=== PATIENT | female | born 1970 | race Caucasian/White ===

== ENCOUNTER → 2018-07-16 14:44 | Outpatient (CLI) | payer OTHER, MEDICAID, SELFPAY ==
[2018-07-16 14:18] VITALS: BMI 30.7
--- NOTE | 2018-07-16 14:47 | BI_ITS ---
MAMMOGRAPHY - BILATERAL SCREENING REASON FOR EXAM: Female, 47 years old. Routine annual screening examination. PERTINENT HISTORY: Non-contributory. TECHNIQUE: Digital bilateral breast robe (3D mammographic acquisition) in the CC and MLO projections. 2-D mediolateral oblique (MLO) and craniocaudad (CC) views of both breasts were obtained. CAD: Full Field Digital Mammography with Computer Added Detection was performed. COMPARISON: Comparison is made with prior study dated June 08, 2017 and December 28, 2012. FINDINGS: Breast Composition: The breasts are heterogeneously dense, which may obscure small masses. There are no dominant masses or suspicious calcifications. The previously seen nodular density in the mid inner aspect of the left breast is not seen at this time. No other significant abnormalities are identified. BI/SCREENING MAMM (CAD), BILAT IMPRESSION: Stable bilateral screening mammogram. Yearly follow-up mammogram recommended. (A) ASSESSMENT CATEGORY: BIRADS Category 1: Negative. A letter regarding these results will be sent to the patient by the facility within 30 days. Approximately 10% of breast cancers are not detected by mammography. A normal mammogram should not delay biopsy of a clinically suspicious abnormality. [id number] Electronically Signed: Eulogio Dennis MD at 15:43 EST Tel [phone], Service support ,
[2018-07-20 11:23] LABS: HPV APTIMA, High Risk Negative (Negative)
--- OUTSIDE RECORDS SUMMARY | 2018-09-18 02:56 | XMS RPT_ITS ---
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: No Is patient in pain?: No Allergies No Known Allergies Allergy (Verified 07/16/18 14:18) Medications venlafaxine ER 150 mg capsule,extended release 24 hr 150 mg PO QHS #30 cap 07/23/17 [Rx Confirmed 07/16/18] Is last menstrual period known: No Post menopausal: No Patient : No : No PFSH Medical History Depression with anxiety (Acute) Surgical History H/O lithotripsy (Acute) H/O tubal ligation (Acute) History of tonsillectomy (Acute) uterine ablation (Acute) Family History Unknown Factor 5 Leiden mutation, heterozygous Social History Smoking Status: Never smoker alcohol intake: never substance use type: does not use caffeine: Yes what type of physical activity do you participate in: walking seatbelt use: always do you feel safe at home: Yes additional social history: - works at [employer] History 3 Elective abortions Hx Para 4 Spontaneous abortions Past Pregnancies Del. DateName GA/Weeks Outcome Route Bt WeighInfant GeLabor LgtAnesthesiDel LocatProvider FOB t n h a n HPI ANNUAL: Details: JAIMEE VILLEGAS is a 47 year old who presents for annual exam. still having menses Last PAP: due today History of abnormal PAP: no Last mammogram: done History of abnormal mammogram: Colon cancer screening: Other preventative health care screenings: needs new pcp Female Reproductive History Questions: Metorrhagia: No, Sexually active: Yes, Dyspareunia: No, PCB: No Menopausal Symptoms: No hot flashes, No night sweats, No weight change, Yes mood changes, No difficulty concentrating, No sleep problems, No change in libido ROS Const Constitutional: Denies night sweats Cardio Card: Denies chest pain Resp Resp: Denies dyspnea or cough GI GI: Reports as per HPI; denies bloating, abdominal pain, constipation, vomiting or nausea : Denies hot flashes or nipple discharge Skin Skin/Breast: Denies breast pain, breast skin changes, nipple discharge, breast lump or changing lesions Psych Psych: Denies difficulty concentrating or change in sex drive Exam Const General: cooperative, healthy appearing, comfortable, no acute distress, well developed, well groomed [facility] Head: normal to inspection, normocephalic Ears: hearing grossly normal bilaterally, external ears normal Nose: external nose normal Face and sinus: normal facial exam Neck Neck: normal visual inspection, full ROM, no lymphadenopathy Thyroid: thyroid normal Chest Chest palpation AND inspection: normal inspection of the chest Breast inspection: normal inspection of the breasts, normal inspection of the axillae Breast palpation: normal palpation of the breasts, normal palpation of the axillae, no axillary lymphadenopathy Resp Effort AND Inspection: normal respiratory effort GI Inspection: normal to inspection, non-distended Palpation: no guarding, soft, no hepatosplenomegaly General: bladder normal to palpation External Female Exam: normal external appearance, normal appearance of the urethra, no lesions Urethra: normal appearance of the urethra, normal palpation Speculum Exam - Vagina: normal appearance of the vagina, normal vaginal discharge Speculum Exam - Cervix: normal appearance of the cervix, no cervical discharge, no lesions, nontender Bimanual Exam- Vagina AND Uterus: No cervical tenderness, normal bimanual exam, uterine size normal, bladder normal to palpation, uterine mobility normal, uterine consistency normal, uterus non-tender, no cervical motion tenderness Bimanual Exam- Adnexa, other: normal adnexae, no adnexal masses, adnexae non-tender Skin General: no rashes or lesions noted Neuro General: alert, moves all extremities, no focal motor deficits Extrem General: no pedal edema, normal to inspection Psych Appearance: grossly normal Mental Status: mental status grossly normal Affect: normal affect Speech and Movement: speech and movement normal Attitude: cooperative Assessment AND Plan Problems 1. Encounter for gynecological examination without abnormal finding Z01.419 Plan Cervical cancer screening: pap hpv Breast cancer screening: mamm other health maintenance examination reviewed and orders placed if needed. Encouraged maintenance of a healthy weight and active lifestyle and handout given. Annual exam handout including recommendations for good health guidelines, Calcium/vitamin D recommendations, and basic screening information given. Problem list up to date, see problem list details for any additional plan information. Follow up in one year for annual health maintenance exam or sooner if needed. Orders Orders: Coding Level of Care Code Off vis,est,prev 40-64yrs Diagnoses Encounter for gynecological examination without abnormal finding Z01.419 Gynecological examination findings: abnormal findings ABSENT 07/16/18 3374 <Electronically signed by Renate Carty MD> Date Renate Carty MD Cosigner Signature: Date (if applicable) CC: PAP IG HPV APTIMA Collected: 07/16/2018 Status: F Source: [place] 16/18,45 3:00 PM [facility] REPOSITORY Order Comment: CYTOLOGY INFORMATION: - CLINICAL INFORMATION: - DATE LMP/MENOPAUSE: LMP - COLLECTION VIAL: Thin Prep Vial - INSTRUCTIONAL TECHNOLOGIST SOURCE: CERVICAL - COLLECTION TECHNIQUE: BRUSH/SPATULA Specimen Comment: [id number] Specimen Comment: Source.............Cervix Specimen Comment: No. of containers..01 ThinPrep Vial TYPE CODE TESTS RESULT OUT OF RANGE REFERENCE UNITS LAB L7400.0800 . Normal DIAGN Comment Result Comment: NEGATIVE FOR INTRAEPITHELIAL LESION AND MALIGNANCY. REACTIVE CELLULAR CHANGES AND/OR REPAIR ARE PRESENT. LAB L7400.0900 . Normal ADEQ Comment Result Comment: Satisfactory for evaluation. Endocervical and/or squamous metaplastic cells (endocervical component) are present. LAB L7400.1400 . Normal PERFORM Comment Result Comment: Tara Jeff, Family Day Care Provider (ASCP) LAB L7400.1700 . Normal SIGN Comment Result Comment: Zena Parada MD, Pathologist LAB L7400.2575 . Normal TEST METHOD Comment Result Comment: This liquid based ThinPrep(R) pap test was screened with the use of an image guided system. LAB L7400.2600 . Normal . COMM LAB L7400.2700 . Normal PAPSMR Comment Result Comment: The Pap smear is a screening test designed to aid in the detection of premalignant and malignant conditions of the uterine cervix. It is not a diagnostic procedure and should not be used as the sole means of detecting cervical cancer. Both false-positive and false-negative reports do occur. LAB L7400.2760 Negative Normal HPV APTIMA, Negative HR Result Comment: This test detects fourteen high-risk HPV types (16/18/31/33/35/39/45/ 51/52/56/58/59/66/68) without differentiation. Performed at: WB - [facility] [address] [id number] Marine Service Manager: Windy Sotelo MD, Phone: [phone] Performed at: =G - [facility] [address] [id number] Marine Service Manager: Windy Sotelo MD, Phone: [phone] Performed By: #### L7400.0280 #### [facility] (refer to report for specific site) refer to report for address and phone number SCREENING MAMM (CAD), Observed: 07/16/2018 Status: F Source: [place] BILAT 2:47 PM [facility] REPOSITORY [facility] Imaging Services [address] [place] [address] SCREENING MAMM (CAD), BIL MR#: [id number] Acct: [id number] Name: JAIMEE VILLEGAS Rep #: [id number] : 1970 F 47 From: Eulogio Dennis MD PCP: Care Physician, No Primary Status: REG CLI Study: SCREENING MAMM (CAD), BILAT Date of Exam: 07/16/18 Exam# [id number] Ordering Dr: Renate Carty MD MAMMOGRAPHY - BILATERAL SCREENING REASON FOR EXAM: Female, 47 years old. Routine annual screening examination. PERTINENT HISTORY: Non-contributory. TECHNIQUE: Digital bilateral breast robe (3D mammographic acquisition) in the CC and MLO projections. 2-D mediolateral oblique (MLO) and craniocaudad (CC) views of both breasts were obtained. CAD: Full Field Digital Mammography with Computer Added Detection was performed. COMPARISON: Comparison is made with prior study dated June 08, 2017 and December 28, 2012. FINDINGS: Breast Composition: The breasts are heterogeneously dense, which may obscure small masses. There are no dominant masses or suspicious calcifications. The previously seen nodular density in the mid inner aspect of the left breast is not seen at this time. No other significant abnormalities are identified. BI/SCREENING MAMM (CAD), BILAT IMPRESSION: Stable bilateral screening mammogram. Yearly follow-up mammogram recommended. (A) ASSESSMENT CATEGORY: BIRADS Category 1: Negative. A letter regarding these results will be sent to the patient by the facility within 30 days. Approximately 10% of breast cancers are not detected by mammography. A normal mammogram should not delay biopsy of a clinically suspicious abnormality. [id number] Electronically Signed: Eulogio Dennis MD at 15:43 EST Tel [phone], Service support , CC: No Primary Care Physician; Renate Carty MD Cutting Machine Tender Helper: Signed ALLERGIES ALLERGIES DATE TYPE / CODE NAME / CODE REACTION SEVERITY SOURCE 07/16/2018 Drug No Known Unknown Ele Allergy/416 Allergies/[id number] [facility] 040242(SNOM 388(RXNORM) [facility] CT) Repository Drug/791463 No Known Mandaeism 003(SNOMED Medication [facility]) Allergies System Repository ENCOUNTERS ENCOUNTERS ADMIT/DISCHARGE ACCOUNT ADMITTING ENCOUNTER LOCATION SOURCE NUMBER CLASS 07/16/2018 [id number] [place] [facility] ing:OPBI Repository 07/16/2018/07/16/19 [id number] Ambulatory BMSBuilding:B Ele [facility] Repository 10/12/2017/10/13/19 [id number] [place], Ambulatory Mandaeism Mandaeism [address] [facility] ing:CD:[id number] [facility] 7151Room: Repository CD:[id number] PAYERS PAYERS ENCOUNTER GUARANTOR PAYER SUBSCRIBER SOURCE 07/16/2018 JAIMEE A Primary JAIMEE A Ele [id number] Insurance:MEDICAL TATEDOB: [address] [facility] [id number]: Repository [id number]: [phone] [id number] [phone] (HP) Date:[id number] [address] [place] [id number]: 07/16/2018 Secondary JAIMEE A Ele Insurance:CARESOURCEP TATEDOB: [facility] Number: [id number] Hospital [id number] Repository Date:2018-04-16 [address]N: [place] [address]VR: 07/16/2018 Tertiary NOT GIVENUNK [place] Insurance:SELF PAY [facility] Number: Effective Repository Date:2018-04-16 07/16/2018 JAIMEE A Primary JAIMEE A [place] [id number] Insurance:MEDICAL TATEDOB: [facility] 1040PO [facility] 94BIG [facility] [id number] Number: Repository [address]Uvm: 330 [id number] [phone] () Date:[id number] [facility] [address] [place] [id number]: 07/16/2018 Secondary JAIMEE A [place] Insurance:CARESOURCEP TATEDOB: [facility] Number: [id number] Hospital [id number] Repository Date:2018-04-16 [address]ATTN: [place] [address]SI: 07/16/2018 Tertiary NOT GIVENUNK Ele Insurance:SELF PAY [facility] Number: Effective Repository Date:2018-07-16 10/12/2017 JAIMEE A Primary JAIMEE A Mandaeism TATEDOB: Insurance:Medical TATEDOB: [id number] Number: [id number] System 94[facility] Effective [address] Repository [place] Date:2017-10-12 [place] [address]Vyn: [id number] [id number]: Name:Medical MutualPO () [address], [place] ()Tel: [phone]: [phone] 10/12/2017 Secondary JAIMEE A Mandaeism Insurance:[place] TATEDOB: [facility] MCAIDPolicy Number: [id number] System Effective [address] Repository Date:2017-10-12 - [place], [place] [id number] [id number]: Name:CD:[id number] [address], [place] ()Tel: [phone]: [phone]
== END ==
PROVIDERS: Referring Provider Obstetrics & Gynecology; Visit Provider Obstetrics & Gynecology
DX: Z12.31 Encounter for screening mammogram for malignant neoplasm of breast (principal); Z12.4 Encounter for screening for malignant neoplasm of cervix
CPT/HCPCS: 77063; 77067; 87624; 88175; G0145

== ENCOUNTER → 2019-07-22 13:40 | Outpatient (CLI) | payer OTHER, SELFPAY ==
[2018-07-16 14:18] VITALS: BMI 30.7
--- NOTE | 2019-07-22 13:40 | BI_ITS ---
MAMMOGRAPHY - BILATERAL SCREENING REASON FOR EXAM: Female, 48 years old. Routine annual screening examination. PERTINENT HISTORY: Aunt with breast cancer. TECHNIQUE: Digital bilateral breast fatmata (3D mammographic acquisition) in the CC and MLO projections. 2-D mediolateral oblique (MLO) and craniocaudad (CC) views of both breasts were obtained. CAD: Full Field Digital Mammography with Computer Added Detection was performed. COMPARISON: Comparison is made with prior mammogram dated July 16, 2018 and June 08, 2017. FINDINGS: Breast Composition: The breasts are heterogeneously dense, which may obscure small masses. There are no dominant masses or suspicious calcifications. Stable benign-appearing bilateral axillary lymph nodes. No other significant abnormalities are identified. There has been no significant change since the prior study. BI/SCREEN MAMM (CAD) W/FATMATA BILAT IMPRESSION: Stable bilateral screening mammogram. Yearly follow-up mammogram recommended. (A) ASSESSMENT CATEGORY: BIRADS Category 2: Benign. A letter regarding these results will be sent to the patient by the facility within 30 days. Approximately 10% of breast cancers are not detected by mammography. A normal mammogram should not delay biopsy of a clinically suspicious abnormality. [id number] Electronically Signed: Eulogio Dennis, at 15:02 EST , Service support ,
== END ==
PROVIDERS: Referring Provider Obstetrics & Gynecology; Visit Provider Obstetrics & Gynecology
DX: Z12.31 Encounter for screening mammogram for malignant neoplasm of breast (principal)
CPT/HCPCS: 77063; 77067

== ENCOUNTER → 2020-03-09 08:47 | Outpatient (CLI) | payer OTHER, SELFPAY ==
[2019-12-02 15:10] VITALS: BMI 30.7
[2020-03-09 10:57] LABS: Vitamin D,25 Hydroxy 29.2 ng/mL
[2020-03-09 11:11] LABS: ALB/GLOB Ratio 0.8 RATIO (0.9-2.4); AST(SGOT) 29 U/L (15-37); Alanine Aminotransfer ALT/SGPT 36 U/L (13-56); Albumin, Serum 3.5 g/dL (3.2-5.0); Alkaline Phosphatase 80 U/L (45-117); Anion Gap 8 (5-15); BUN 12 mg/dL (7-18); BUN/Creat Ratio 17.1 RATIO (10-20); Chloride 101 mmol/L (98-107); Cholesterol 225 mg/dL (200); EST Glomerular Filtration Rate 94 mL/min (>60); Est Glom Filt Rate - Afr Amer 114 mL/min (>60); Globulin 4.2 g/dL (2.2-4.2); Glucose 83 mg/dL (74-106); High Density Lipoprotein 49 mg/dL; Potassium 4.1 mmol/L (3.5-5.1); Protein, Total 7.7 g/dL (6.4-8.2); Sodium Level 137 mmol/L (136-145); Thyroid Stim Hormone (TSH) 1.25 uIU/mL (0.358-3.74); Triglycerides 249 mg/dL; Very Low Density Lipoprotein 50 mg/dL (5-40)
== END ==
PROVIDERS: Referring Provider Obstetrics & Gynecology; Visit Provider Obstetrics & Gynecology
DX: Z13.220 Encounter for screening for lipoid disorders (principal); Z13.21 Encounter for screening for nutritional disorder; Z13.1 Encounter for screening for diabetes mellitus; Z13.29 Encounter for screening for other suspected endocrine disorder
CPT/HCPCS: 36415; 80053; 80061; 82306; 84443

== ENCOUNTER → 2021-02-09 08:17 | Outpatient (CLI) | payer OTHER, SELFPAY ==
[2019-12-02 15:10] VITALS: BMI 30.7
--- NOTE | 2021-02-09 08:19 | BI_ITS ---
MAMMOGRAPHY - BILATERAL SCREENING REASON FOR EXAM: Female, 50 years old. Routine annual screening examination. PERTINENT HISTORY: Aunt with breast cancer. TECHNIQUE: Digital bilateral breast fatmata (3D mammographic acquisition) in the CC and MLO projections. 2-D mediolateral oblique (MLO) and craniocaudad (CC) views of both breasts were obtained. CAD: Full Field Digital Mammography with Computer Added Detection was performed. COMPARISON: Comparison is made with prior study dated 07/22/2019 and 07/16/2018. FINDINGS: Breast Composition: The breasts are heterogeneously dense, which may obscure small masses. There are no dominant masses or suspicious calcifications. Stable benign-appearing bilateral axillary lymph nodes. No other significant abnormalities are identified. There has been no significant change since the prior study. BI/SCRN MAMM (CAD)W/FATMATA BILAT IMPRESSION: Stable bilateral screening mammogram. Yearly follow-up mammogram recommended. (A) ASSESSMENT CATEGORY: BIRADS Category 2: Benign. A letter regarding these results will be sent to the patient by the facility within 30 days. Approximately 10% of breast cancers are not detected by mammography. A normal mammogram should not delay biopsy of a clinically suspicious abnormality. [id number] Electronically Signed: Eulogio Dennis MD at 8:59 EDT , Service support ,
== END ==
PROVIDERS: Referring Provider Obstetrics & Gynecology; Visit Provider Obstetrics & Gynecology
DX: Z12.31 Encounter for screening mammogram for malignant neoplasm of breast (principal)
CPT/HCPCS: 77063; 77067

== ENCOUNTER → 2021-02-19 13:43 | Outpatient (CLI) | payer OTHER, SELFPAY ==
[2021-02-09 08:47] VITALS: BMI 30.7
--- NOTE | 2021-02-19 13:52 | US_ITS ---
STUDY: ULTRASOUND OF THE FEMALE PELVIS - COMPLETE REASON FOR EXAM: Female, 50 years old. Abnormal uterine bleeding. History of endometrial ablation in 2016. Irregular cycles. Menorrhagia. History of bilateral salpingo-oophorectomy. LMP: 02/01/2021 TECHNIQUE: Transabdominal and Transvaginal TECHNICAL QUALITY: Adequate. COMPARISON: None. FINDINGS: The uterus is anteverted and is in a midline position. The uterus measures 9.7 x 5.6 x 5 point cm. There are multiple small nabothian cysts. The endometrium measures 9 mm in thickness, and is hyperechoic. There appears to be acoustic shadowing from the endometrium. Question adenomyosis.. There is no demonstrated endometrial mass. There is no demonstrated myometrial mass. I.U.D. - The patient does not have an I.U.D. The right ovary is visualized. The right ovary measures 2.3 x 3.0 x 2.1 cm. There are multiple follicles of the right ovary with a 1.7 x 1.7 x 1.9 cm dominant cyst. There is no visualized right adnexal mass or complex lesion. There is normal arterial and normal venous vascularity. The left ovary is visualized. The left ovary measures 2.2 x 2.1 x 1.8 cm. There are multiple follicles of the left ovary without a dominant cyst. There is no visualized left adnexal mass or complex lesion. There is normal arterial and normal venous vascularity. There is no fluid in the cul-de-sac. The pre void volume of the bladder was 141 ml. The urinary bladder appears grossly normal. Polycystic ovary disease: No. US/Transvaginal Non- IMPRESSION: 1. Linear shadowing arising from endometrium. Question adenomyomatosis. 2. Normal ovaries. 3. Nabothian cysts. Electronically Signed: Abhishek Gonzalez DO at 16:59 EDT Tel [phone], Service support ,
--- NOTE | 2021-02-19 13:52 | US_ITS ---
STUDY: ULTRASOUND OF THE FEMALE PELVIS - COMPLETE REASON FOR EXAM: Female, 50 years old. Abnormal uterine bleeding. History of endometrial ablation in 2016. Irregular cycles. Menorrhagia. History of bilateral salpingo-oophorectomy. LMP: 02/01/2021 TECHNIQUE: Transabdominal and Transvaginal TECHNICAL QUALITY: Adequate. COMPARISON: None. FINDINGS: The uterus is anteverted and is in a midline position. The uterus measures 9.7 x 5.6 x 5 point cm. There are multiple small nabothian cysts. The endometrium measures 9 mm in thickness, and is hyperechoic. There appears to be acoustic shadowing from the endometrium. Question adenomyosis.. There is no demonstrated endometrial mass. There is no demonstrated myometrial mass. I.U.D. - The patient does not have an I.U.D. The right ovary is visualized. The right ovary measures 2.3 x 3.0 x 2.1 cm. There are multiple follicles of the right ovary with a 1.7 x 1.7 x 1.9 cm dominant cyst. There is no visualized right adnexal mass or complex lesion. There is normal arterial and normal venous vascularity. The left ovary is visualized. The left ovary measures 2.2 x 2.1 x 1.8 cm. There are multiple follicles of the left ovary without a dominant cyst. There is no visualized left adnexal mass or complex lesion. There is normal arterial and normal venous vascularity. There is no fluid in the cul-de-sac. The pre void volume of the bladder was 141 ml. The urinary bladder appears grossly normal. Polycystic ovary disease: No. US/Pelvic (Non ) IMPRESSION: 1. Linear shadowing arising from endometrium. Question adenomyomatosis. 2. Normal ovaries. 3. Nabothian cysts. Electronically Signed: Abhishek Gonzalez DO at 16:59 EDT Tel [phone], Service support ,
== END ==
PROVIDERS: Referring Provider Nurse Practitioner Women's Health; Visit Provider Nurse Practitioner Women's Health
DX: N93.9 Abnormal uterine and vaginal bleeding, unspecified (principal)
CPT/HCPCS: 76830; 76856

== ENCOUNTER → 2021-02-23 09:28 | Outpatient (CLI) | payer OTHER, SELFPAY ==
--- NOTE | 2021-02-23 09:30 | EMB_PTH ---
PATIENT: JAIMEE VILLEGAS [facility][id number] AGE/SX: 54/F ROOM: RE02/23/[address]: NETO Martinez : 1970 BED: DIS: SPEC #: [id number] RECD: 02/23/21 09:43 STATUS: CHAITANYA OLIVIA #: [id number] YOVANI: 02/23/21 09:[address]: Sheron Mayes NP DEPT: SURGICAL PATHOLOGY RECD BY: Macrina Isaacs ENTERED: 02/23/21 11:42 SP TYPE: ENDOM BX/C TARAH DR: Caridad Primary Care Phys Tissues: Endometrium, NOS Procedures: Surgery Specimen Level IV HEADER OPERATION: Endometrial biopsy PRE-OP DIAGNOSIS: PMB TISSUE SUBMITTED: Endometrial biopsy MICROSCOPIC DIAGNOSIS Endometrium, biopsy: Disordered endometrium with focal glandular breakdown. AM:ekta 02/24/2021 MICROSCOPIC DESCRIPTION Slides are reviewed. GROSS DESCRIPTION Received is one container labeled with the patient's name and not further designated. The specimen consists of multiple fragments of pink hemorrhagic soft tissue that in aggregate measure 3 x 2.5 x 0.3 cm. The specimen is totally submitted in one cassette. / FRANKLYN:ekta 02/23/21 TC:5 CPT: 80701
[2021-02-23 10:14] LABS: Follicle Stimulating Hormone 8.9 mIU/mL
== END ==
PROVIDERS: Referring Provider Nurse Practitioner Women's Health; Visit Provider Nurse Practitioner Women's Health
DX: N85.9 Noninflammatory disorder of uterus, unspecified (principal)
CPT/HCPCS: 36415; 83001; 88305

== ENCOUNTER → 2022-05-05 | Outpatient (CLI) | payer OTHER, SELFPAY ==
--- NOTE | 2022-05-05 16:18 | US_ITS ---
EXAM: US PELVIS TRANSABDOMINAL LIMITED AND TRANSVAGINAL CLINICAL INDICATION: AUB TECHNIQUE: Transabdominal (limited) and transvaginal pelvic ultrasound was performed with grayscale and color Doppler imaging. Transvaginal imaging was used for better evaluation of the endometrium and adnexa. This report was created using [employer] report [employer] technology. COMPARISON: None. FINDINGS: UTERUS/CERVIX: The uterus measures 11.0 x 5.0 x 6.9 cm. There are multiple anechoic structures in the cervix which measured nabothian cysts. The endometrium measures 1.1 cm. The endometrium measures 1 cm. Anteverted. There is no uterine mass. RIGHT OVARY: The right ovary measures 2.5 x 1.4 x 2.2 cm. There is an anechoic structure measuring 1.3 x 1.3 x 1.7 cm. Blood flow is present in the right ovary. LEFT OVARY: Left ovary measures the left ovary measures 3.9 x 2.4 x 3.1 cm. There is an anechoic structure that measures 2.4 x 2.5 x 2.1 cm compatible with a cyst. Blood flow is present in the left ovary. FREE FLUID: None. BLADDER: The bladder measures 6.2 x 7.0 x 10.2 cm for a volume of 231 mL. US/Pelvic (Non ) IMPRESSION: Anechoic structures in both ovaries compatible bilateral cysts. There are multiple anechoic structures seen within the cervix which may represent nabothian cysts. Electronically Signed: Dar Cardona MD at 18:10 EST ,
== END | disposition home or self-care (01) ==
PROVIDERS: PCP Family Medicine; Visit Provider Obstetrics & Gynecology
DX: N93.9 Abnormal uterine and vaginal bleeding, unspecified (principal)
CPT/HCPCS: 76830; 76856

== ENCOUNTER 2022-05-17 16:11 | Inpatient (IN) | payer OTHER, SELFPAY ==
[2022-05-12 10:53] LABS: Absolute Neutrophil Count 6.3 X10^3/uL (2.0-7.7); Basophil# 0.05 X10^3/uL; Basophil% 0.5 % (0-1); Eosinophil# 0.18 X10^3/uL; Eosinophils% 1.9 % (0-5); Hematocrit 39.8 % (37-47); Lymphocyte % 23.8 % (19-41); Mean Corp Hgb Conc 32.7 g/dL (32-36); Mean Corpuscular Volume 88.6 fL (81-99); Mean Platelet Vol. 9.9 fl (6.2-12.0); Monocyte# 0.51 X10^3/uL; Monocyte% 5.5 % (0-10); NRBC Flagged by Analyzer 0 % (0-5); Neutrophil # 6.29 X10^3/uL (2.7-7.7); Platelet Count 303 K/mm3 (150-450); RBC Distribution Width CV 13.2 % (11.6-14.6); Red Blood Count 4.49 M/mm3 (4.2-5.4); White Blood Count 9.3 K/mm3 (4.4-11.0)
[2022-05-12 11:18] LABS: ALB/GLOB Ratio 0.8 RATIO (0.9-2.4); AST(SGOT) 22 U/L (15-37); Alanine Aminotransfer ALT/SGPT 35 U/L (13-56); Albumin, Serum 3.2 g/dL (3.2-5.0); Alkaline Phosphatase 73 U/L (45-117); Anion Gap 7 (5-15); BUN 10 mg/dL (7-18); BUN/Creat Ratio 15.4 RATIO (10-20); Chloride 102 mmol/L (98-107); Creatinine, Serum 0.65 mg/dL (0.55-1.02); EST Glomerular Filtration Rate 102 mL/min (>60); Est Glom Filt Rate - Afr Amer 124 mL/min (>60); Globulin 3.8 g/dL (2.2-4.2); Glucose 109 mg/dL (74-106); Potassium 3.8 mmol/L (3.5-5.1); Sodium Level 137 mmol/L (136-145)
[2022-05-14 10:10] LABS: Cholesterol 212 mg/dL (200); Glucose 101 mg/dL (74-106); High Density Lipoprotein 48 mg/dL; Triglycerides 202 mg/dL; Very Low Density Lipoprotein 40 mg/dL (5-40)
[2022-05-17] VITALS (12 sets, daily range): BP systolic 118–158; BP diastolic 66–98; PULSE 81–111; RESP 12–18; TEMP 36.6–37.4; O2SAT 93–100; BMI 30.7
--- NOTE | 2022-05-17 09:45 | HYST_PTH ---
PATIENT: JAIMEE VILLEGAS LOC: [facility]3 U#:[id number] AGE/SX: 51/F ROOM: [facility] [place] RE05/17/[address]: Dr. Renate Carty MD : 1970 BED: 1 DIS: 05/18/2022 SPEC #: [id number] RECD: 05/18/22 07:00 STATUS: CHAITANYA BAKER #: [id number] YOVANI: 05/17/22 09:[address]: Renate Carty DEPT: SURGICAL PATHOLOGY RECD BY: Macrina Isaacs ENTERED: 05/18/22 09:01 SP TYPE: HYSTERECT OTHR DR: Imelda Lund PA-C Tissues: Uterus, NOS Procedures: Surgery Specimen Level V HEADER OPERATION: ERAS, total vaginal hysterectomy, cystoscopy PRE-OP DIAGNOSIS: Abnormal uterine bleeding TISSUE SUBMITTED: Uterus, cervix MICROSCOPIC DIAGNOSIS Uterus and cervix, total vaginal hysterectomy: Cervix ? chronic cystic cervicitis. Endometrium ? proliferative endometrium. Myometrium ? adenomyosis. See comment. SJ:rg 05/20/2022 COMMENT Please make reference to previous specimen ([id number]) endometrium, biopsy with diagnosis of ?disordered endometrium with focal glandular breakdown.? MICROSCOPIC DESCRIPTION Slides are reviewed. GROSS DESCRIPTION Received in fixative is one container labeled with the patient's name and designated uterus, cervix. The specimen consists of a hysterectomy specimen consisting of uterus with cervix weighing 143 gm and measuring 11 x 7 x 5 cm. The serosal surface is estrada, glistening. The ectocervical mucosa is unremarkable. The external os is circular in contour. The endocervical canal measures 4 cm in length and the endocervical mucosa is estrada, glistening and unremarkable. Sections reveal multiple cysts filled with mucoid material. The triangular endometrial cavity measures 5.5 cm in length and up to 2.5 cm in width. The endometrium is estrada, glistening without any mass lesion and measures 0.1 cm in thickness. Sections reveal focal trabeculated cut surface suspicious for adenomyosis. The right cornu shows a dilated portion of proximal fallopian tube measuring 1 cm in greatest dimension. The uterine wall measures up to 2.5 cm in thickness. Sections of the uterine wall do not reveal any mass lesion. Biological Inspector sections are submitted in seven cassettes as follows: 1 - anterior cervix, 2 - posterior cervix, 3 & 4 - anterior uterine wall, 5 & 6 - posterior uterine wall, 7 - focal area suspicious for adenomyosis and dilated right cornu. / SJ:ekta 05/18/2022 TC:5 CPT: 09372
[2022-05-17] MEDS: Magnesium 1 GM over 15 mins IV (10:39)
[2022-05-17] MEDS: Lactated Ringers 1,000 ML 40 ML IV (10:39)
[2022-05-17] MEDS: Scopolamine 1mg/72hr Patch 1 PATCH TD (10:39)
[2022-05-17] MEDS: Phenazopyridine 95 MG Tablet 190 MG PO (10:40)
[2022-05-17] MEDS: Celecoxib 200 MG Capsule 400 MG PO (10:41)
[2022-05-17] MEDS: Acetaminophen 500 MG Tablet 1000 MG PO ×3 (10:41→23:00)
[2022-05-17] MEDS: Gabapentin 600 MG Tablet PO (10:41)
[2022-05-17] MEDS: dexAMETHasone 10 MG/ML Vial 8 MG IV (10:42)
[2022-05-17] MEDS: Enoxaparin 40 MG/0.4 ML Syringe SC (10:49)
--- NOTE | 2022-05-17 11:05 | HP.PCM_ITS ---
History and Physical Intake Vital Signs ? 04/29/2211:49 Height 5 ft 8 in Weight:B 201 lb BMI 30.5 BP 138/87 H Intake Visit Reasons:?TVHBS Chief Complaint: pre op TVH BS Lens Coating Technician Required: No Is patient in pain?: No Allergies No Known Allergies Allergy (Verified 04/06/22 17:33) Medications multivitamin 1 tab PO DAILY 02/09/21 [History Confirmed 04/29/22] medroxyprogesterone 10 mg tablet (Provera) 10 mg PO QDAY #30 tabs 03/03/22 [Rx Confirmed 04/29/22] venlafaxine 150 mg capsule,extended release 24 hr See Rx Instructions .Route .COMPLEX #90 caps 03/03/22 [Rx Confirmed 04/29/22] cyanocobalamin (vitamin B-12) 1,000 mcg capsule 1,000 mcg PO QMONTH 04/29/22 [History Confirmed 04/29/22] ubidecarenone-omega 3-vit E 25 mg-150 (90-60) mg-200 unit capsule (Co G-80-Lkztwfw E-Fish Oil) 1 cap PO DAILY 04/29/22 [History Confirmed 04/29/22] Is last menstrual period known: No Post menopausal: No Patient : No : [facility] History? Abnormal uterine bleeding (AUB) Chronic back pain Depression with anxiety Diarrhea Edema Malignant hyperthermia Surgical History? H/O lithotripsy H/O tubal ligation History of tonsillectomy S/P endometrial ablation Family History? Father Diabetes Hypertension DVT (deep venous thrombosis) Heart disease Social History? current occupational status:? employed current occupation:? [employer] and [employer] office Smoking Status:? Never smoker alcohol intake:? never substance use type:? does not use caffeine:? Yes what type of physical activity do you participate in:? walking seatbelt use:? always do you feel safe at home:? Yes additional social history:? HPI TVHBS Details: JAIMEE VILLEGAS is a 51 year old who presents for preop for TVH BS, failed ablation and provera, wishes to proceed with hysterectomy. Female Reproductive History Menopausal Symptoms: No hot flashes, No night sweats, No difficulty concentrating and No change in libido History ? ? ? 3 ? Elective abortions ? Hx Para ? ? ? 4 ? Spontaneous abortions ? Hx # Term Pregnancies ? Ectopic pregnancies ? Hx # Pregnancies ? Multiple births ? # of living children ? Past Pregnancies Del. Date Name GA/Weeks Outcome Route Bth Weight Infant Gen Labor Lgth Anesthesia Del Locatn Provider FOB Unknown 1997 Jaja ? Unknown 1999 Johanna ? Unknown 1999 Cyndi ? Unknown 2001 Iqra ? ROS Const Constitutional: Reports as per HPI; Denies fatigue, increased appetite, poor appetite, night sweats, weight gain or weight loss Cardio Card: Denies chest pain Resp Resp: Denies cough or dyspnea GI GI: Reports as per HPI; Denies abdominal pain, bloating, constipation, nausea or vomiting : Reports as per HPI and other; Denies difficulty voiding, dysuria, hematuria, hot flashes, nipple discharge, pelvic pain, prolapse symptoms, urinary frequency, urinary incontinence, urinary urgency, vaginal discharge, vaginal dryness, vaginal odor or vaginal pruritus Skin Skin/Breast: Denies changing lesions, breast mass, breast pain, breast skin changes or nipple discharge Psych Psych: Denies anxiety, change in libido, depression or difficulty concentrating Exam Const General: cooperative, healthy appearing, comfortable, no acute distress, well developed and well groomed [facility] Head: normal to inspection and normocephalic Ears: hearing grossly normal bilaterally and external ears normal Nose: external nose normal Face and sinus: normal facial exam Neck Neck: normal visual inspection, full ROM and no lymphadenopathy Thyroid: thyroid normal Resp Effort & Inspection: normal respiratory effort GI Inspection: normal to inspection and non-distended Palpation: soft, no hepatosplenomegaly and no guarding General: bladder normal to palpation External Female Exam: normal external appearance, normal appearance of the urethra and no lesions Urethra: normal appearance of the urethra and normal palpation Speculum Exam - Vagina: normal appearance of the vagina and normal vaginal discharge Speculum Exam - Cervix: normal appearance of the cervix, no cervical discharge, no lesions and nontender Bimanual Exam- Vagina & Uterus: normal bimanual exam, uterine size normal, bladder normal to palpation, No tender, uterine mobility normal, consistency normal, non-tender and no cervical motion tenderness Bimanual Exam- Adnexa, other: normal adnexae, no masses and non-tender Skin General: no rashes or lesions noted Neuro General: patient alert, moves all extremities and no focal motor deficits Extrem General: normal to inspection and no pedal edema Psych Appearance: grossly normal Mental Status: mental status grossly normal Affect: normal affect Speech and Movement: speech and movement normal Attitude: cooperative Coding Level of Care Code No Charge Diagnoses Abnormal uterine bleeding (AUB)? N93.9 Assessment and Plan Assessment and Plan (1) Abnormal uterine bleeding (AUB): ?Status:?Acute ?Comment: h o ablation, failed cyclic provera, plan TVHBS, repeat US ordered Plan After discussing the patient's diagnosis and treatment plan options, patient wishes to proceed with surgical management.? I have discussed with the patient the risks, benefits, and alternatives of the procedure which include but are not limited to risks of anesthesia, bleeding, infection, possible damage to bowel, bladder, or surrounding vasculature which could lead to additional surgery to evaluate any complications.? Patient agrees to procedure and wishes to proceed.? ACOG/uptodate references given for additional information regarding procedure.? UPDATE- I have seen the patient and performed any clinically relevant updates to the history and physical exam. Renate Carty MD
[2022-05-17 11:15] LABS: Bedside Glucose 84 mg/dL (74-106)
[2022-05-17] MEDS: Cefazolin 2 GM in 0.9% Normal Saline 100 ML IV (11:25)
--- NOTE | 2022-05-17 11:29 | PCM.OPRPT ---
Problems Associated Problem List Diagnoses (1) Abnormal uterine bleeding (AUB): Report of Operation Date of Procedure: 05/17/22 Pre-Operative Diagnosis: see A/P Post-Operative Diagnosis: same Surgery/Procedure Performed:: TVH BS diagnostic laparoscopy cystoscopy mini laparotomy Description of Surgical Findings:: 10 cm uterus, increased vasculature nl ovaries bilaterally Surgeon: Renate Carty word processing supervisor: Queenie Tellez word processing supervisor: Alina Borrego Type of Anesthesia: General Special Medications: floseal Specimen's removed: uterus, tubes Drains: bhatt Estimated Blood Loss (mL): 900 Fluids Replaced: crystalloid Description of Procedure: Patient was taken to the operating room and was placed under general anesthesia was prepped and draped in normal sterile fashion in the dorsal lithotomy position. Preoperative antibiotics and SCDs and Bhatt catheter was placed inside the bladder. Weighted speculum was placed in the vagina and the anterior and posterior lip of the cervix was grasped with 2 Kenyon clamps and circumferentially injected with dilute vasopressin. A circumferential incision was made with a scalpel and the posterior cul-de-sac was entered into sharply and a longneck speculum was placed. The anterior cul-de-sac was also dissected down and entered into sharply and the uterosacral ligaments were clamped cut and suture ligated bilaterally followed by the cardinal ligaments which were Clamped cut and suture ligated bilaterally with 0 Monocryl. The uterus serially descended and progressive bites were taken bilaterally up to the level of the utero-ovarian ligament bilaterally which was clamped transected and double ligated with 0 Monocryl suture and 0 Vicryl free tie. Bilateral fallopian tubes and ovaries were well visualized and noted be within normal limits and the bilateral fallopian tubes were transected across the base with a Opal clamp and removed and sutured with 0 Vicryl suture. bleeding was noted at the cuff bilaterally and multiple interrupted sutures were placed to try and obtain hemostasis. Persistent bleeding was noted and therefore a running locking suture reapproximating the peritoneum and the cuff all the way around was done to try and obtain hemostasis. This appeared to be successful and therefore the vaginal cuff started to be closed and upon closure there was some increased bleeding noted and at this point limited visualization was presents the decision was made to perform a diagnostic laparoscopy to evaluate intra-abdominally what the bleeding was. Due to the multiple stitches placed cystoscopy was performed and bilateral ureteral spray was noted and no abnormalities were seen to the bladder. Umbilical port site was placed after Veress needle was entered into the abdomen with a low opening pressure 2 mmHg the abdomen was insufflated with CO2 gas and right and left lower quadrant 5 mm ports were placed and then the left lower quadrant port was converted to a 12 mm port in order to utilize the Endo Stitch. Several stitches were placed with the Endo Stitch and then persistent bleeding was seen along the right anterior vaginal cuff and therefore laparoscopic suturing was performed with an 0 Vicryl however the right angle could just not be reached and anywhere a needle was placed there seem to be bleeding present and it was unable to be managed with simple figure of eight stitches and Floseal over the area. At this time the decision was made to convert to a mini laparotomy in order to obtain adequate intraoperative exposure and to properly manage the bleeding complication. 7 cm mini laparotomy was performed in the midline via Pfannenstiel fashion with a scalpel after the abdomen was reprepped the patient redraped. After skin incision was made incision was carried down to the layer of the fascia which was nicked in the midline and the incision extended laterally and peritoneum entered digitally. Incision stretched laterally and an Wilian retractor was placed and the bowel packed away. Bleeding was noted at the right vaginal cuff which had been seen laparoscopically and the area was oversewn with several [id number] sutures and then 2 running locking sutures are crossed the top which were noted to obtain hemostasis. Floseal was placed over the area and again hemostasis checked and present and therefore all laps and instruments removed from the abdomen. Peritoneum was closed with 3-0 suture and the fascia closed with #1 PDS strata fix. Subcutaneous tissue irrigated and skin closed with 3-0 Monocryl. Additional antibiotics will be given due to surgery length. Previous port sites were closed including putting a fascial suture in the left lower quadrant port site that had a 12 mm port present. Skin incisions were closed with 3-0 Monocryl. Patient was awoken and taken recovery in stable condition with Bhatt present. Grafts/Implants Used: none Complications none Admit VTE Documentation VTE Present on Admission: No VTE Mechan Device Prophylaxis: SCD's VTE Pharm Prophylaxis ordered?: Yes Multi Select Codes Urinary/Genital Urinary/Genital CPT Codes: 56513 TVH+BS/O <250gr uterus (converted to diagnostic laparoscopy 40197 then mini laparotomy 90848)
[2022-05-17] MEDS: Vasopressin 20 UNITS/ML Vial (12:00)
[2022-05-17] MEDS: 0.9% Normal Saline 1,000 ML 15 ML IV ×2 (12:45→14:00)
[2022-05-17] MEDS: Bupivacaine 0.25% 30 ML Vial (15:30)
[2022-05-17 16:13] LABS: Hematocrit 33.8 % (37-47); Hemoglobin 11.4 g/dL (12.0-15.0); Mean Corp Hgb Conc 33.7 g/dL (32-36); Mean Corpuscular Hgb 29.9 pg (27.0-32.0); Mean Corpuscular Volume 88.7 fL (81-99); Mean Platelet Vol. 9.9 fl (6.2-12.0); Platelet Count 322 K/mm3 (150-450); RBC Distribution Width CV 13.4 % (11.6-14.6); RBC Distribution Width SD 43.3 fl (35.1-43.9); Red Blood Count 3.81 M/mm3 (4.2-5.4); White Blood Count 20.8 K/mm3 (4.4-11.0)
[2022-05-17] MEDS: Lactated Ringers 1,000 ML 70 ML IV (16:26)
[2022-05-17] MEDS: Ketorolac 30 MG/ML Syringe IV ×2 (17:19→22:59)
--- NOTE | 2022-05-17 17:44 | DCINST_ITS ---
Discharge Instructions Procedure Hysterectomy, Abd Diet Discharge Diet: No restrictions Activity Discharge Activity: Return to Normal Activity, May Not Drive (while taking narcotic pain medications.) and May Shower May resume sexual activity in: 6-8 weeks Weight Bearing Status: Weight bearing as tolerated Dressing / Incision Call your doctor if your incision/area has: Continuous Slow Oozing, Sudden Increased Bleeding, Increased Pain/ Swelling, Increased Redness and Foul Smelling Discharge Call your doctor if you observe: Fever of 101 or Higher, Inability to urinate, Inability to have a bowel movement and Using more than 1 pad per hour Follow Up Care Please Follow Up With: Renate Carty MD Test Results: Test results from this visit will be discussed in further detail at your follow- up appointment, if applicable. Discharge Plan Admission Admit Date/Time: 05/17/22 16:11 Attending Provider: Renate Carty Primary Care Provider: Imelda Lund Discharge Orders/Prescriptions Prescriptions: New oxycodone-acetaminophen [Percocet] 5-325 mg tablet 1 tab PO Q6H PRN (Reason: pain) 7 Days Qty: 28 0RF naproxen [naproxen] 500 mg tablet 500 mg PO BID PRN PRN (Reason: Pain) Qty: 30 1RF Continued multivitamin Tablet 1 tab PO DAILY Co O-24-Lvciogg E-Fish Oil 25-150-200 mg-mg-unit capsule 2 cap PO DAILY cyanocobalamin (vitamin B-12) 1,000 mcg capsule 5,000 mcg PO DAILY venlafaxine 150 mg capsule,extended release 24hr 150 mg PO QHS Referrals / Follow Up: Imelda Lund PA-C [Primary Care Provider] -
[2022-05-17] MEDS: Docusate Sodium 100 MG Capsule PO (22:58)
[2022-05-18 01:05] VITALS: BP 138/69; PULSE 100; RESP 16; TEMP 37.1; O2SAT 94
[2022-05-18] MEDS: Lactated Ringers 1,000 ML 70 ML IV (02:53)
[2022-05-18 02:59] VITALS: BP 127/70; PULSE 102; RESP 16; TEMP 37.1; O2SAT 93
[2022-05-18 04:18] LABS: Hematocrit 29.6 % (37-47); Hemoglobin 9.9 g/dL (12.0-15.0); Mean Corp Hgb Conc 33.4 g/dL (32-36); Mean Corpuscular Volume 86.8 fL (81-99); Mean Platelet Vol. 9.8 fl (6.2-12.0); Platelet Count 293 K/mm3 (150-450); RBC Distribution Width CV 13.2 % (11.6-14.6); RBC Distribution Width SD 41.3 fl (35.1-43.9); Red Blood Count 3.41 M/mm3 (4.2-5.4); White Blood Count 14.3 K/mm3 (4.4-11.0)
[2022-05-18] MEDS: Acetaminophen 500 MG Tablet 1000 MG PO ×2 (05:47→11:34)
[2022-05-18] MEDS: Ketorolac 30 MG/ML Syringe IV ×2 (05:47→11:34)
[2022-05-18] MEDS: Lactated Ringers 1,000 ML 999 ML IV (06:31)
--- NOTE | 2022-05-18 06:38 | PCM.PN.OB ---
Subjective Subjective Patient doing well without complaints- back pain improved, pain fairly controlled. Tolerating PO. standing without difficulty. Denies chest pain, shortness of breath, calf pain/swelling, fevers, chills, lightheadedness. Objective Data Objective Data Vital Signs: Vital Signs Temp Pulse Resp BP Pulse Ox O2 Del Method O2 Flow Rate 98.7 F 102 H 16 127/70 H 93 Room Air 4 05/18/22 02:59 05/18/22 02:59 05/18/22 02:59 05/18/22 02:59 05/18/22 02:59 05/18/22 02:59 05/17/22 18:36 Oxygen Flow Rate (L/min) 4 Oxygen Delivery Method Room Air Weight: 201 lb 15.095 oz Body Mass Index (BMI) 30.7 Intake & Output: Intake and Output for Last 24 Hours 05/16/22 05/17/22 05/18/22 23:59 23:59 23:59 Intake Total 3212 / 4112 2431.5 / 2431.5 Output Total 1700 / 2300 2850 / 2850 Balance 1512 / 1812 -418.5 / -418.5 Lab / Micro Data Result Diagrams: 05/18/22 04:14 05/14/22 09:32 Labs: Laboratory Results - last 24 hr 05/17/22 10:48: POC Glucose 84 05/17/22 15:56: WBC 20.8 H, RBC 3.81 L, Hgb 11.4 L, Hct 33.8 L, MCV 88.7, MCH 29.9, MCHC 33.7, RDW Std Deviation 43.3, RDW Coeff of Shruthi 13.4, Plt Count 322, MPV 9.9 05/18/22 04:14: WBC 14.3 H, RBC 3.41 L, Hgb 9.9 L, Hct 29.6 L, MCV 86.8, MCH 29.0, MCHC 33.4, RDW Std Deviation 41.3, RDW Coeff of Shruthi 13.2, Plt Count 293, MPV 9.8 ROS Constitutional Constitutional: Reports systems reviewed and no addt'l complaints, except as documented Cardiovascular Cardiovascular: Reports systems reviewed and no addt'l complaints, except as documented Respiratory/Chest Respiratory/Chest: Reports systems reviewed and no addt'l complaints, except as documented Gastrointestinal Gastrointestinal: Reports systems reviewed and no addt'l complaints, except as documented Physical Exam Const alert, oriented x3 and no apparent distress HEENT Head and Scalp: atraumatic Resp normal respiratory effort GI soft to palpation and non-tender Assessment & Plan (1) Abnormal uterine bleeding (AUB): COMMENT: s/p TVHBS diagnostic laparoscopy minilaparotomy due to bleeding. PLAN: Plan patient is s/p tvhbs laparoscopy minilap POD 1 1. routine ERAS protocol postop care- increase ambulation, encourage oral intake and oral control of pain. expected drop in Hg due to intraoperative blood loss- will repeat cbc at 1000, IVF bolus for borderline tachycardia, if cbc stable will give lovenox at 1100 and scds for dvt prophylaxis, patient stable for discharge to home today/tomorrow depending on meeting criteria. 2. additional dose of ancef given due to intraop time
[2022-05-18 07:40] VITALS: BP 132/67; PULSE 92; RESP 18; TEMP 36.4; O2SAT 98
[2022-05-18] MEDS: oxyCODONE 5 MG Tablet PO (07:47)
[2022-05-18] MEDS: Docusate Sodium 100 MG Capsule PO (07:47)
[2022-05-18] MEDS: 0.9% Saline Lock 10 ML Syringe IV ×2 (07:47→11:34)
[2022-05-18 07:55] VITALS: O2SAT 96
--- NOTE | 2022-05-18 09:50 | CASEMGMT ---
TRU DRAKE Assessment: Face to Face with pt for initial transition planning/care coordination assessment. RN VIDAL introduced self and role at [facility], pt voices understanding and consents to assessment. Pt is A/O x4 and answers all questions appropriately at this time. Pt sitting up in chair in no distress. Care providers, pharmacy, and demographics verified/updated. Admitting Dx: total vag hyser, bilat salping PCP:LIUDMILA Lund Specialists:Carloz, SPINNING SUPERVISOR; Neuro in [place]; GI appt upcoming Preferred Pharmacy: [facility] Insurance: [employer] Prescription Benefit: yes LW/HPOA: Pt denies having a LW/DPOA and denies need for info regarding AD. LNOK: Leah Avila, mother Living Arrangements: Pt lives alone in a two story home with 1 step to enter. Pt reports she is I in ADL's and denies concerns at home. Transportation: Pt drives self and denies concerns with transportation. Pt parents will provide transportation post surgery. DME/HHC/SNF: Pt denies having any DME, hx of HHC or SNF stays. Pt states no concerns with going home at time of dc. Pt states no further concerns/needs. CM to follow. Advised pt to ask CM if any further question/concerns/needs arise, voices understanding. Pt Goal: Home Plan: Home
[2022-05-18 10:09] LABS: Absolute Lymphocyte Count 2.62 X10^3/uL (0.83-4.51); Absolute Neutrophil Count 8.9 X10^3/uL (2.0-7.7); Basophil# 0.02 X10^3/uL; Basophil% 0.2 % (0-1); Eosinophil# 0.02 X10^3/uL; Eosinophils% 0.2 % (0-5); Hematocrit 30.9 % (37-47); Hemoglobin 10.2 g/dL (12.0-15.0); Lymphocyte # 2.62 X10^3/ul (0.83-4.51); Lymphocyte % 21.7 % (19-41); Mean Corpuscular Hgb 28.9 pg (27.0-32.0); Mean Corpuscular Volume 87.5 fL (81-99); Monocyte% 4.1 % (0-10); NRBC Flagged by Analyzer 0 % (0-5); Neutrophil # 8.87 X10^3/uL (2.7-7.7); Neutrophil % 73.4 % (47-70); Platelet Count 329 K/mm3 (150-450); RBC Distribution Width CV 13.2 % (11.6-14.6); RBC Distribution Width SD 41.7 fl (35.1-43.9); Red Blood Count 3.53 M/mm3 (4.2-5.4); White Blood Count 12.1 K/mm3 (4.4-11.0)
[2022-05-18] MEDS: Enoxaparin 40 MG/0.4 ML Syringe SC (11:33)
[2022-05-18 11:40] VITALS: BP 127/71; PULSE 80; RESP 16; TEMP 36.6; O2SAT 98
[2022-05-18 11:50] VITALS: BP 127/71; PULSE 80; RESP 16; TEMP 36.6; O2SAT 98
--- NOTE | 2022-05-18 14:59 | PHA.DC.MC ---
Pharmacy Service has performed discharge medication reconciliation and counseling for this patient. 1. NAPROXEN 500MG PO BID PRN PAIN 2. PERCOCET 5/325MG 1T PO Q6H PRN PAIN The patient's discharge medication list was reviewed for discrepancies and discrepancies were resolved. Home Medications multivitamin 1 tab PO DAILY 02/09/21 cyanocobalamin (vitamin B-12) 1,000 mcg capsule 5,000 mcg PO DAILY 04/29/22 ubidecarenone-omega 3-vit E 25 mg-150 (90-60) mg-200 unit capsule (Co K-94-Gncxczc E-Fish Oil) 2 cap PO DAILY 04/29/22 venlafaxine 150 mg capsule,extended release 24 hr 150 mg PO QHS 05/11/22 naproxen 500 mg tablet 500 mg PO BID PRN PRN Pain #30 tabs 05/17/22 oxycodone-acetaminophen 5 mg-325 mg tablet (Percocet) 1 tab PO Q6H PRN pain 7 days #28 tabs 05/17/22 The patient was counseled on the following discharge medications and changes in medications for homegoing were reviewed. The Reason for Use, instructions for use, and potential side effects were reviewed for all new medications. The patient's questions regarding all of their medications were answered. The patient was able to verbally demonstrate an understanding of their discharge medications.
== END 2022-05-18 15:18 | disposition home or self-care (01) | DRG 742 ==
LOC: AC 16:11 → MS3 17:11
PROVIDERS: Anesthesiology; Admitting Provider Obstetrics & Gynecology; PCP Family Medicine; Referring Provider Obstetrics & Gynecology; Visit Provider Obstetrics & Gynecology
PROC: 0UT97ZZ Resection of Uterus, Via Natural or Artificial Opening (ICD-10-PCS; CPT 58260; principal; 2022-05-17 09:25)
DX: N93.9 Abnormal uterine and vaginal bleeding, unspecified (principal); N99.61 Intraoperative hemorrhage and hematoma of a genitourinary system organ or structure complicating a genitourinary system procedure; E78.5 Hyperlipidemia, unspecified
CPT/HCPCS: 36415; 80053; 80061; 82947; 82962; 83735; 85025; 85027; 86850; 86900; 86901; 88307; 93005; 99251; J7120; A4216; G0463; J2405; J3475; Q9968

== ENCOUNTER 2022-05-31 14:59 | Outpatient (CLI) | payer OTHER, SELFPAY ==
[2022-05-31 15:12] LABS: Absolute Lymphocyte Count 2.89 X10^3/uL (0.83-4.51); Absolute Neutrophil Count 13.7 X10^3/uL (2.0-7.7); Basophil% 0.5 % (0-1); Eosinophils% 2.7 % (0-5); Hematocrit 28.9 % (37-47); Hemoglobin 9.6 g/dL (12.0-15.0); Lymphocyte # 2.89 X10^3/ul (0.83-4.51); Lymphocyte % 15.5 % (19-41); Mean Corp Hgb Conc 33.2 g/dL (32-36); Mean Corpuscular Hgb 29.2 pg (27.0-32.0); Mean Corpuscular Volume 87.8 fL (81-99); Mean Platelet Vol. 8.9 fl (6.2-12.0); Monocyte# 1.31 X10^3/uL; NRBC Flagged by Analyzer 0 % (0-5); Neutrophil # 13.73 X10^3/uL (2.7-7.7); Neutrophil % 73.6 % (47-70); Platelet Count 704 K/mm3 (150-450); RBC Distribution Width CV 13.5 % (11.6-14.6); RBC Distribution Width SD 43.6 fl (35.1-43.9); Red Blood Count 3.29 M/mm3 (4.2-5.4); White Blood Count 18.7 K/mm3 (4.4-11.0)
== END 2022-05-31 23:59 | disposition home or self-care (01) ==
LOC: PAVLAB 15:00
PROVIDERS: PCP Family Medicine; Referring Provider Obstetrics & Gynecology; Visit Provider Obstetrics & Gynecology
DX: R42 Dizziness and giddiness (principal); R63.0 Anorexia
CPT/HCPCS: 36415; 85025

== ENCOUNTER → 2022-06-01 | Outpatient (CLI) | payer OTHER, SELFPAY ==
--- NOTE | 2022-06-01 09:40 | CT_ITS ---
STUDY: CT ABDOMEN AND PELVIS WITH CONTRAST REASON FOR EXAM: Female, 51 years old. Pelvic pain/abcess -- STAT read RADIATION DOSAGE (If Supplied By Facility): CTDIvol = ( 16.16 ) mGy, DLP = ( 1030.70 ) mGycm TECHNIQUE: Transaxial images were obtained from the dome of the diaphragm to the symphysis pubis without oral contrast. 100 CC ISOVUE 300. ORAL GASTRO was administered. Sagittal and coronal images were reconstructed. Individualized dose optimization techniques were used for this CT. COMPARISON: Comparison is made with prior ultrasound of the pelvis dated 05/05/2022. FINDINGS: The visualized lung bases are unremarkable. The visualized portions of the heart are within normal limits. There is decreased attenuation of the liver consistent with steatosis. Normal gallbladder and extrahepatic biliary system. There is a benign calcified granuloma of the spleen. Normal pancreas. Normal bilateral adrenal glands. Normal right kidney. Normal left kidney. There is a small hiatal hernia. Normal small intestine. Normal colon. The appendix is visualized and appears normal. Normal abdominal aorta. Normal inferior vena cava. Normal retroperitoneum. Normal urinary bladder. There is absence of the uterus consistent with a prior hysterectomy. Air is seen within the vagina and vaginal cuff. There is a 1.5 cm x 1.4 cm rounded air collection in the region of the vaginal cuff. Increased markings are seen in the surrounding peritoneal fat. This is more prominent on the left side. This may represent postoperative change. There is a 3.7 cm x 3.6 cm cyst in the left ovary. There is evidence of increased density within the cyst. A repeat sonogram is recommended for further evaluation. Normal abdominal wall. Normal osseous structures. CT/Abdomen/Pelvis WITH Contrast IMPRESSION: Status post hysterectomy. Air is seen within the vagina and vaginal cuff as well as in the superior aspect of the vaginal cuff. Increased markings in the surrounding peritoneal fat. Left ovarian cyst with increased density within it. A repeat sonogram is recommended. Electronically Signed: Eulogio Dennis MD at 12:22 EST ,
--- NOTE | 2022-06-01 12:22 | US_ITS ---
STUDY: ULTRASOUND OF THE FEMALE PELVIS - COMPLETE REASON FOR EXAM: Female, 51 [address] -- RECENT HYSTERECTOMY WITH PAIN, VAGINAL BLEEDING AND ABNL WHITE COUNT LMP: Post hysterectomy. TECHNIQUE: Transvaginal TECHNICAL QUALITY: Adequate. COMPARISON: Comparison is made with prior ultrasound of the pelvis dated 05/05/[address] scan done earlier today. FINDINGS: The patient is status post hysterectomy. The right ovary is visualized. The right ovary measures 1.9 cm x 2.3 cm x 1.5 cm. Dominant follicle is seen within it. There is no visualized right adnexal mass or complex lesion. There is normal arterial and normal venous vascularity. The left ovary is visualized. The left ovary measures 3.8 cm x 3.2 cm x 2.7 cm. A dominant follicle is seen within the left ovary measuring 2 cm x 1.5 cm x 1.8 cm. In the left side of the midline in the pelvis, there is a 3.5 cm x 2.6 cm hypoechoic complex nodular density corresponding to the CT findings. This may represent a postoperative hemorrhagic cyst or possible abscess. Follow-up is recommended. There is normal arterial and normal venous vascularity. US/Transvaginal Non- IMPRESSION: Status post hysterectomy. Complex cystic structure seen in the left adnexa and midline as described. This may represent postoperative hemorrhagic cyst versus possible abscess. Follow-up recommended. Electronically Signed: Eulogio Dennis MD at 13:28 EST ,
[2022-06-01 12:31] LABS: Absolute Lymphocyte Count 2.14 X10^3/uL (0.83-4.51); Absolute Neutrophil Count 13.3 X10^3/uL (2.0-7.7); Basophil# 0.07 X10^3/uL; Basophil% 0.4 % (0-1); Eosinophil# 0.32 X10^3/uL; Eosinophils% 1.9 % (0-5); Hematocrit 26.2 % (37-47); Hemoglobin 8.4 g/dL (12.0-15.0); Lymphocyte # 2.14 X10^3/ul (0.83-4.51); Lymphocyte % 12.5 % (19-41); Mean Corp Hgb Conc 32.1 g/dL (32-36); Mean Corpuscular Hgb 28.1 pg (27.0-32.0); Mean Corpuscular Volume 87.6 fL (81-99); Mean Platelet Vol. 9.3 fl (6.2-12.0); Monocyte# 1.11 X10^3/uL; Monocyte% 6.5 % (0-10); NRBC Flagged by Analyzer 0 % (0-5); Neutrophil # 13.27 X10^3/uL (2.7-7.7); Neutrophil % 77.6 % (47-70); Platelet Count 633 K/mm3 (150-450); RBC Distribution Width CV 13.6 % (11.6-14.6); RBC Distribution Width SD 43.6 fl (35.1-43.9); Red Blood Count 2.99 M/mm3 (4.2-5.4); White Blood Count 17.1 K/mm3 (4.4-11.0)
== END | disposition home or self-care (01) ==
LOC: OPUS 09:38 → CT 09:38
PROVIDERS: PCP Family Medicine; Visit Provider Obstetrics & Gynecology
DX: D72.829 Elevated white blood cell count, unspecified (principal); K44.9 Diaphragmatic hernia without obstruction or gangrene; Z90.710 Acquired absence of both cervix and uterus; N73.9 Female pelvic inflammatory disease, unspecified
CPT/HCPCS: 74177; 76830; 85025; Q9967

== ENCOUNTER → 2022-06-03 | Outpatient (CLI) | payer OTHER, SELFPAY ==
[2022-06-03 09:46] LABS: Absolute Lymphocyte Count 2.23 X10^3/uL (0.83-4.51); Absolute Neutrophil Count 9.4 X10^3/uL (2.0-7.7); Basophil# 0.07 X10^3/uL; Basophil% 0.5 % (0-1); Eosinophil# 0.49 X10^3/uL; Eosinophils% 3.8 % (0-5); Hematocrit 29.6 % (37-47); Hemoglobin 9.3 g/dL (12.0-15.0); Lymphocyte # 2.23 X10^3/ul (0.83-4.51); Lymphocyte % 17.2 % (19-41); Mean Corp Hgb Conc 31.4 g/dL (32-36); Mean Corpuscular Hgb 27.5 pg (27.0-32.0); Mean Corpuscular Volume 87.6 fL (81-99); Mean Platelet Vol. 8.9 fl (6.2-12.0); Monocyte# 0.63 X10^3/uL; Monocyte% 4.9 % (0-10); NRBC Flagged by Analyzer 0 % (0-5); Neutrophil # 9.42 X10^3/uL (2.7-7.7); Neutrophil % 72.5 % (47-70); Platelet Count 718 K/mm3 (150-450); RBC Distribution Width CV 13.8 % (11.6-14.6); Red Blood Count 3.38 M/mm3 (4.2-5.4)
== END | disposition home or self-care (01) ==
PROVIDERS: PCP Family Medicine; Referring Provider Obstetrics & Gynecology; Visit Provider Obstetrics & Gynecology
DX: D72.829 Elevated white blood cell count, unspecified (principal)
CPT/HCPCS: 36415; 85025

== ENCOUNTER → 2022-06-09 | Outpatient (CLI) | payer OTHER, SELFPAY ==
[2022-06-09 10:45] LABS: Erythrocyte Sedimentation Rate 51 mm/hr (0-30)
[2022-06-09 10:46] LABS: Absolute Lymphocyte Count 1.92 X10^3/uL (0.83-4.51); Absolute Neutrophil Count 5.3 X10^3/uL (2.0-7.7); Basophil# 0.06 X10^3/uL; Basophil% 0.7 % (0-1); Eosinophil# 0.27 X10^3/uL; Eosinophils% 3.3 % (0-5); Hematocrit 29.5 % (37-47); Hemoglobin 9.2 g/dL (12.0-15.0); Lymphocyte # 1.92 X10^3/ul (0.83-4.51); Lymphocyte % 23.7 % (19-41); Mean Corp Hgb Conc 31.2 g/dL (32-36); Mean Corpuscular Hgb 27.1 pg (27.0-32.0); Mean Platelet Vol. 8.8 fl (6.2-12.0); Monocyte# 0.48 X10^3/uL; Monocyte% 5.9 % (0-10); NRBC Flagged by Analyzer 0 % (0-5); Neutrophil # 5.32 X10^3/uL (2.7-7.7); Neutrophil % 65.8 % (47-70); POSITIVE COUNT YES; Platelet Count 764 K/mm3 (150-450); RBC Distribution Width CV 14.3 % (11.6-14.6); RBC Distribution Width SD 45.1 fl (35.1-43.9); Red Blood Count 3.39 M/mm3 (4.2-5.4); White Blood Count 8.1 K/mm3 (4.4-11.0)
[2022-06-09 10:48] LABS: Differential Indicated SCAN CRITERIA MET
[2022-06-09 10:59] LABS: ALB/GLOB Ratio 0.5 RATIO (0.9-2.4); AST(SGOT) 19 U/L (15-37); Alanine Aminotransfer ALT/SGPT 24 U/L (13-56); Albumin, Serum 2.8 g/dL (3.2-5.0); Alkaline Phosphatase 88 U/L (45-117); Anion Gap 5 (5-15); BUN 18 mg/dL (7-18); BUN/Creat Ratio 26.7 RATIO (10-20); Calcium,Total 9.1 mg/dL (8.5-10.1); Chloride 100 mmol/L (98-107); Creatinine, Serum 0.68 mg/dL (0.55-1.02); EST Glomerular Filtration Rate 98 mL/min (>60); Est Glom Filt Rate - Afr Amer 118 mL/min (>60); Globulin 5.1 g/dL (2.2-4.2); Glucose 99 mg/dL (74-106); Protein, Total 7.9 g/dL (6.4-8.2); Sodium Level 136 mmol/L (136-145)
[2022-06-09 11:32] LABS: Platelet Estimate MKD INC (ADEQ)
[2022-06-10 15:08] LABS: Cytoplasmic Ab (C-ANCA) <1:20 titer (Neg:<1:20); Endomysial Antibody IgA Negative (Negative); Immunoglobulin A 243 mg/dL (87-352)
[2022-06-10 15:49] LABS: Perinuclear Ab (P-ANCA) <1:20 titer (Neg:<1:20); t-Transglutaminase IgA <2 U/mL (0-3)
[2022-06-10 16:08] LABS: Anti-Centromere B Ab <0.2 AI (0.0-0.9); Anti-Chromatin <0.2 AI (0.0-0.9); Anti-Jo <0.2 AI (0.0-0.9); Anti-Scleroderma-70 AB <0.2 AI (0.0-0.9); RNP Ab <0.2 AI (0.0-0.9); SJOGREN'S Anti-SS-A test < 0.2 AI (0.0-0.9); SJOGREN'S Anti-SS-B test < 0.2 AI (0.0-0.9); Smith Ab <0.2 AI (0.0-0.9)
[2022-06-10 20:52] LABS: Anti-dsDNA Ab 2 IU/mL (0-9)
[2022-06-13 10:02] LABS: Pathologist Review Reviewed
== END | disposition home or self-care (01) ==
PROVIDERS: Nurse Practitioner Adult Health; PCP Family Medicine; Referring Provider Obstetrics & Gynecology; Visit Provider Obstetrics & Gynecology
DX: N89.8 Other specified noninflammatory disorders of vagina (principal); K58.9 Irritable bowel syndrome, unspecified; R19.8 Other specified symptoms and signs involving the digestive system and abdomen; R50.9 Fever, unspecified; D72.829 Elevated white blood cell count, unspecified
CPT/HCPCS: 36415; 80053; 82784; 83516; 85025; 85652; 86140; 86225; 86235; 86255; 86256; 87070; 87205; 87493; 87506

== ENCOUNTER → 2022-06-17 | Outpatient (CLI) | payer OTHER, SELFPAY | END | disposition home or self-care (01) | LOC: LABSPEC 13:37 | PROVIDERS: PCP Family Medicine; Referring Provider Obstetrics & Gynecology; Visit Provider Obstetrics & Gynecology | DX: N89.8 Other specified noninflammatory disorders of vagina (principal) | CPT/HCPCS: 87070; 87205 ==

== ENCOUNTER → 2022-06-22 | Outpatient (CLI) | payer OTHER, SELFPAY ==
--- NOTE | 2022-06-22 15:39 | NEURO ---
NCS and/or EMG Patient Report Ordering Doctor: Aaron Watkins DATE OF SERVICE: 06/22/22 Alexandria presents electrodiagnostic testing of the lower limbs. She reports numbness and tingling in both feet. She has intermittent low back pain radiating into the legs. Electrodiagnostic findings: Right peroneal motor nerve demonstrates normal distal latency with borderline reduced amplitude and reduced conduction velocity. Left peroneal motor nerve demonstrates normal distal latency and amplitude with reduced conduction velocity. Right tibial motor nerve demonstrates normal distal latency with a reduced amplitude and reduced conduction velocity. Left tibial motor nerve demonstrates normal distal latency with reduced amplitude and normal conduction velocity. Sensory is responses could not be obtained. Prolonged H reflex bilaterally. Prolonged tibial and peroneal F waves. On needle EMG 1+ fibrillations noted in the right external hamstrings, right anterior tibialis and right lumbosacral paraspinals. Motor unit action potentials were normal amplitude and duration. Electrodiagnostic impression: This is an abnormal study in the lower limbs 1. Electrodiagnostic findings are suggestive of peripheral polyneuropathy with motor and sensory nerve involvement. There is evidence of axonal loss and demyelination. 2. Electrodiagnostic evidence consistent with acute right L5 radiculopathy. Consider correlation with lumbar spine imaging.
== END | disposition home or self-care (01) ==
PROVIDERS: PCP Family Medicine; Referring Provider Psychiatry & Neurology Neurology; Visit Provider Psychiatry & Neurology Neurology
DX: G37.9 Demyelinating disease of central nervous system, unspecified (principal); R20.0 Anesthesia of skin; M54.10 Radiculopathy, site unspecified
CPT/HCPCS: 95886; 95913

== ENCOUNTER → 2022-07-01 | Outpatient (CLI) | payer OTHER, SELFPAY ==
[2022-07-01 11:26] LABS: Absolute Neutrophil Count 3.3 X10^3/uL (2.0-7.7); Basophil# 0.05 X10^3/uL; Basophil% 0.8 % (0-1); Eosinophil# 0.25 X10^3/uL; Eosinophils% 3.9 % (0-5); Hematocrit 38.8 % (37-47); Lymphocyte % 37.4 % (19-41); Mean Corp Hgb Conc 30.9 g/dL (32-36); Mean Corpuscular Hgb 27.5 pg (27.0-32.0); Mean Platelet Vol. 10.2 fl (6.2-12.0); Monocyte# 0.38 X10^3/uL; Monocyte% 5.9 % (0-10); NRBC Flagged by Analyzer 0 % (0-5); Neutrophil # 3.32 X10^3/uL (2.7-7.7); Neutrophil % 51.7 % (47-70); Platelet Count 377 K/mm3 (150-450); RBC Distribution Width CV 15.9 % (11.6-14.6); RBC Distribution Width SD 52.9 fl (35.1-43.9); Red Blood Count 4.36 M/mm3 (4.2-5.4); White Blood Count 6.4 K/mm3 (4.4-11.0)
== END | disposition home or self-care (01) ==
PROVIDERS: PCP Family Medicine; Referring Provider Obstetrics & Gynecology; Visit Provider Obstetrics & Gynecology
DX: A42.9 Actinomycosis, unspecified (principal); N93.9 Abnormal uterine and vaginal bleeding, unspecified
CPT/HCPCS: 36415; 85025; 87070; 87077; 87186; 87205

== ENCOUNTER 2022-08-23 13:50 | Day surgery (SDC) | payer OTHER, SELFPAY ==
--- NOTE | 2022-08-23 14:13 | PCM.HP.BLA ---
History and Physical Date of Admission: 08/23/22 TEMO VILLEGAS, is a 51 F who presents to the office today to establish with gastroenterology for long hx of alternating constipation and diarrhea. She has decided to focus on her health now that her kids are adults. She reports possible IBS, and that multiple family members have IBS. Her mother has such urgent diarrhea that she has frequent fecal incontinence; pt worries that will happen to her. She recalls bowel issues back in high school. Sometimes gets abd cramps and diarrhea after eating. Can't determine any pattern or certain foods that trigger symptoms. Often occurs after eating at restaurants. Maybe some improvement with avoiding lactose. She rarely takes imodium since it then causes diarrhea. May be constipated for a week, then might have diarrhea daily for a week. She does get nocturnal diarrhea. Diarrhea can be urgent, rare accidents. Doesn't take anything for constipation. Can have vomiting when she is constipated and gets intestinal cramps. May get diarrhea then too. Can get a sharp pain in LLQ, then has diarrhea. Can have heartburn triggered by eating certain foods such as chocolate milk, [place] food. Might take TUMS or Pepto bismol prn, but not often. No dysphagia. She had hysterectomy 05/17/22. After surgery she was constipated for a week, then got diarrhea after taking stool softener and having oral contrast for CT on 06/01/22. Currently has diarrhea on augmentin, watery stool any time she sits on the toilet. Poor appetite since surgery, lost 14 lbs, taking Ensure. She has f/u today with Dr Carty who has already order tests for C diff, enteric pathogens, CBC, CMP. No prior EGD or colonoscopy. 06/01/22 CT/Abdomen/Pelvis WITH Contrast IMPRESSION: Status post hysterectomy. Air is seen within the vagina and vaginal cuff as well as in the superior aspect of the vaginal cuff.? Increased markings in the surrounding peritoneal fat. Left ovarian cyst with increased density within it.? A repeat sonogram is recommended. Fatty liver ROS Const Constitutional: No fatigue ENT ENT: No difficulty swallowing Gastro GI: No abdominal pain, belching, bloating, change in bowel habits, change in stool character, coffee ground emesis, constipation, cramping, diarrhea, heartburn, difficulty swallowing, feeling full early, excessive flatus, incontinent of stools, Vomiting blood/hematemesis, Blood in stool, loose stools, Black,tarry stools, nausea/dyspepsia, pain with swallowing, vomiting or other Musc Musculoskeletal: No joint pain Skin Skin: No yellowing of the eye or itchy eyes Psych Psychiatric: No anxiety and No depression Endo Endocrine: No fatigue Aller/Imm Allergy/Immunologic: No itchy eyes Dwight/Lymp Hematologic/Lymphatic: No easy bleeding or easy bruising Exam Const General: cooperative, comfortable and no acute distress Nutritional Appearance: overweight Orientation: alert, awake and oriented x3 HEENT Head: normal to inspection Eyes Sclera: sclerae normal Resp Effort & Inspection: normal respiratory effort Skin General: no rashes or lesions noted Quality Reporting Tobacco Screening ([facility] 138) Smoking Status: Never smoker Assessment and Plan Assessment and Plan (1) Alternating constipation and diarrhea: ?Status:?Acute ?Plan: 51 yr old female with long hx of alternating constipation and diarrhea along with abdominal pain. She currently has diarrhea while taking augmentin. Dr Carty is checking stool for C diff and enteric pathogens, as well as CBC and CMP. I added labs for celiac, IBD. We'll see what lab results show, I'll contact her via portal with results. Consider dicyclomine bid for abd cramping and diarrhea Needs EGD and colonoscopy--will schedule for 3 months with f/u in office 2 wks later I have examined the patient and the H&P has been reviewed. There are no clinical changes since date of exam.
[2022-08-23 14:17] VITALS: BP 134/72; PULSE 79; RESP 16; TEMP 36.9; O2SAT 97; BMI 30.4
[2022-08-23] MEDS: Lactated Ringers 1,000 ML 15 ML IV (14:28)
--- NOTE | 2022-08-23 15:15 | COLBX_PTH ---
PATIENT: JAIMEE VILLEGAS LOC: [facility] U#:[id number] AGE/SX: 51/F ROOM: RE08/23/[address]: Dr. Christoph Siu DO : 1970 BED: DIS: 08/23/2022 SPEC #: [id number] RECD: 08/23/22 15:56 STATUS: CHAITANYA OLIVIA #: [id number] YOVANI: 08/23/22 15:[address]: hCristoph Siu DEPT: SURGICAL PATHOLOGY RECD BY: Inga Carson ENTERED: 08/24/22 12:20 SP TYPE: COLON BX OTHR DR: Imelda Lund PA-C Tissues: A - Duodenum, NOS B - Gastric mucous membrane C - Esophagus, NOS D - Ileum, NOS E - COLON BIOPSY Procedures: Special Stain Group II Surgery Specimen Level IV Alcian Blue/PAS (control) HEADER OPERATION: Colonoscopy, EGD ([facility] [place]), biopsy PRE-OP DIAGNOSIS: Constipation/diarrhea TISSUE SUBMITTED: A ? Duodenum biopsy, B ? Gastric body biopsy, C ? Distal esophagus biopsy, D ? Terminal ileum biopsy, E ? Random colon biopsy MICROSCOPIC DIAGNOSIS A. Duodenum, biopsy: Fragments of duodenal mucosa, no pathologic diagnosis. B. Gastric body, biopsy: Mild gastritis. See microscopic description and comment. C. Distal esophagus, biopsy: Fragments of gastroesophageal mucosa with focal intestinal metaplasia (goblet cell metaplasia), consistent with Rothman's esophagus. Chronic inflammation. Negative for dysplasia. See comment. D. Terminal ileum, biopsy: Fragments of small intestinal mucosa, no pathologic diagnosis. E. Colon, random biopsy: Fragments of colonic mucosa, no pathologic diagnosis. SJ:ekta 08/25/2022 COMMENT B. The results of immunohistochemistry for Helicobacter pylori will be reported separately ([id number]). C. Immunohistochemistry ([id number]) for P53 and Ki-67 will be performed and results will be reported separately. Alcian blue/PAS stain with matched control is used in the evaluation of the specimen. MICROSCOPIC DESCRIPTION Slides are reviewed. The specimen shows fragments of gastric mucosa with chronic inflammatory cell infiltrates in the lamina propria consisting of lymphocytes and plasma cells, consistent with mild chronic gastritis. GROSS DESCRIPTION A - Received in fixative is one container labeled with the patient's name and designated biopsy duodenum. The specimen consists of multiple irregular fragments of light estrada soft tissue that in aggregate measure 1.2 x 0.2 x 0.1 cm. The specimen is totally submitted in one cassette. B - Received in fixative is one container labeled with the patient's name and designated biopsy gastric body. The specimen consists of two irregular fragments of light estrada soft tissue that in aggregate measure 0.3 x 0.2 x 0.1 cm. The specimen is totally submitted in one cassette. C - Received in fixative is one container labeled with the patient's name and designated distal esophagus. The specimen consists of multiple irregular fragments of light estrada soft tissue that in aggregate measure 1.0 x 0.2 x 0.1 cm. The specimen is totally submitted in one cassette. D - Received in fixative is one container labeled with the patient's name and designated biopsy terminal ileum. The specimen consists of two irregular fragments of light estrada soft tissue that in aggregate measure 0.5 x 0.4 x 0.1 cm. The specimen is totally submitted in one cassette. E - Received in fixative is one container labeled with the patient's name and designated biopsy random colon. The specimen consists of multiple irregular fragments of light estrada soft tissue that in aggregate measure 0.6 x 0.6 x 0.1 cm. The specimen is totally submitted in one cassette. / SJ:rg 08/24/2022 TC:3 CPT: 23284 x5, 66318
--- NOTE | 2022-08-23 15:15 | IMM_PTH ---
PATIENT: JAIMEE VILLEGAS LOC: EN U#:[id number] AGE/SX: 51/F ROOM: RE08/23/[address]: Dr. Christoph Siu DO : 1970 BED: DIS: 08/23/2022 SPEC #: [id number] RECD: 08/24/22 13:29 STATUS: CHAITANYA OLIVIA #: [id number] YOVANI: 08/23/22 15:[address]: Christoph Siu DEPT: IMMUNOHISTOCHEMISTRY RECD BY: Marce Eugene ENTERED: 08/24/22 13:29 SP TYPE: IMMUNO OTHR DR: Imelda Lund PA-C Tissues: B - Stomach, NOS C - Esophagus, NOS Procedures: H Pylori (initial) P53 (initial) KI-67 (add) PHYSICIAN & INSTITUTION [place] [id number] SPECIMEN INFORMATION: Tissue Source: B ? Gastric body, C ? Distal esophagus Clinical Info: Constipation/diarrhea Specimen Number: [id number] B & C CPT code: 47923 x2, 29373 METHODOLOGY: Deparaffinized sections of prefer/formalin-fixed tissue or PAP/DQ stained slides are incubated with monoclonal/polyclonal antibodies/oligonucleotide probes. Localization is made via biotin free immunoperoxidase method. Appropriate controls are performed and reacted as expected. Results on target cell population are indicated in the following table: RESULTS: ANTIBODY / CLONE RESULT Block B H Pylori (polyclonal) negative Block C P53 (DO-7) negative (null pattern) Ki-67 (30-9) positive, very low These tests were developed and their performance characteristics determined by [facility]. They may not have been cleared or approved by the U.S. Food and Drug Administration. The FDA has determined that such clearance or approval is not necessary. The above immunohistochemical/dualISH markers are ordered and reviewed by the Pathologist. INTERPRETATION: B. Gastric body, biopsy: Negative for Helicobacter pylori organisms. C. Distal esophagus, biopsy: Negative for dysplasia. SJ:ekta 08/26/2022
[2022-08-23 15:39] VITALS: BP 130/87; BP 134/72; PULSE 80; RESP 14; TEMP 36.4; O2SAT 95
--- NOTE | 2022-08-23 15:40 | OP.EGD_ITS ---
Patient Name: Alexandria Avila Procedure Date: 08/23/2022 2:58 PM Date of : 1970 Age: 51 Procedure: Upper GI endoscopy Indications: Epigastric abdominal pain, Functional Dyspepsia Providers: Christoph Siu DO Medicines: Monitored Anesthesia Care Patient Profile: This is a 51 year old female. Refer to note in patient chart for documentation of history and physical. Patient has symptoms of chronic abdominal cramping, chronic epigastric abdominal pain and chronic dyspepsia. Complications: No immediate complications. Procedure: Pre-Anesthesia Assessment: - Prior to the procedure, a History and Physical was performed, and patient medications and allergies were reviewed. The patient is competent. The risks and benefits of the procedure and the sedation options and risks were discussed with the patient. All questions were answered and informed consent was obtained. Patient identification and proposed procedure were verified by the physician in the pre-procedure area. Mental Status Examination: alert and oriented. Airway Examination: normal oropharyngeal airway and neck mobility. Respiratory Examination: clear to auscultation. CV Examination: normal. Prophylactic Antibiotics: The patient does not require prophylactic antibiotics. Prior Anticoagulants: The patient has taken no previous anticoagulant or antiplatelet agents. After reviewing the risks and benefits, the patient was deemed in satisfactory condition to undergo the procedure. The anesthesia plan was to use monitored anesthesia care (MAC). Immediately prior to administration of medications, the patient was re-assessed for adequacy to receive sedatives. The heart rate, respiratory rate, oxygen saturations, blood pressure, adequacy of pulmonary ventilation, and response to care were monitored throughout the procedure. The physical status of the patient was re-assessed after the procedure. After obtaining informed consent, the endoscope was passed under direct vision. Throughout the procedure, the patient's blood pressure, pulse, and oxygen saturations were monitored continuously. The pediatric colonoscope was introduced through the mouth, and advanced to the second part of duodenum. The upper GI endoscopy was accomplished without difficulty. The patient tolerated the procedure well. Scope In: 3:05:11 PM Scope Out: 3:10:57 PM Total Procedure Duration Time 0 hours 5 minutes 46 seconds Findings: The Z-line was irregular and was found 41 cm from the incisors. Biopsies were taken with a cold forceps for histology. Verification of patient identification for the specimen was done. Estimated blood loss was minimal. Patchy mildly erythematous mucosa without bleeding was found in the gastric body. Biopsies were taken with a cold forceps for histology. Verification of patient identification for the specimen was done. Estimated blood loss was minimal. No gross lesions were noted in the second portion of the duodenum. Biopsies were taken with a cold forceps for histology. Verification of patient identification for the specimen was done. Estimated blood loss was minimal. Impression: - Z-line irregular, 41 cm from the incisors. Biopsied. - Erythematous mucosa in the gastric body. Biopsied. - No gross lesions in the second portion of the duodenum. Biopsied. Recommendation: - Discharge patient to home. - Resume previous diet. - Continue present medications. - Await pathology results. Procedure Code(s): --- Professional --- 63705, Esophagogastroduodenoscopy, flexible, transoral; with biopsy, single or multiple CPT copyright 2017 [employer]. All rights reserved. The codes documented in this report are preliminary and upon mold holder review may be revised to meet current compliance requirements. Christoph Siu DO 08/23/2022 3:40:19 PM This report has been signed electronically. Number of Addenda: 0 Note Initiated On: 08/23/2022 2:58 PM
--- NOTE | 2022-08-23 15:40 | OP.CCLET_ITS ---
08/23/2022 [facility] Re : Upper GI endoscopy procedure for Alexandria Lund This procedure was performed on Tuesday, August 23, 2022. My impressions and recommendations are as follows: Impressions : - Z-line irregular, 41 cm from the incisors. Biopsied. - Erythematous mucosa in the gastric body. Biopsied. - No gross lesions in the second portion of the duodenum. Biopsied. Recommendations : - Discharge patient to home. - Resume previous diet. - Continue present medications. - Await pathology results. My findings are described in the full procedure note, which is enclosed. If I can be of further assistance, please feel free to contact me at . Sincerely, Christoph Siu, 08/23/2022 3:40:19 PM This report has been signed electronically.
--- NOTE | 2022-08-23 15:43 | OP.COLON_ITS ---
Patient Name: Alexandria Avila Procedure Date: 08/23/2022 3:11 PM Date of : 1970 Age: 51 Procedure: Colonoscopy Indications: Generalized abdominal pain, Clinically significant diarrhea of unexplained origin Providers: Christoph Siu DO Medicines: Monitored Anesthesia Care Patient Profile: This is a 51 year old female. Refer to note in patient chart for documentation of history and physical. Patient has symptoms of chronic abdominal cramping, chronic epigastric abdominal pain and chronic dyspepsia. Last Colonoscopy: none. The patient's first colonoscopy is today. Complications: No immediate complications. Procedure: Pre-Anesthesia Assessment: - Prior to the procedure, a History and Physical was performed, and patient medications and allergies were reviewed. The patient is competent. The risks and benefits of the procedure and the sedation options and risks were discussed with the patient. All questions were answered and informed consent was obtained. Patient identification and proposed procedure were verified by the physician in the pre-procedure area. Mental Status Examination: alert and oriented. Airway Examination: normal oropharyngeal airway and neck mobility. Respiratory Examination: clear to auscultation. CV Examination: normal. Prophylactic Antibiotics: The patient does not require prophylactic antibiotics. Prior Anticoagulants: The patient has taken no previous anticoagulant or antiplatelet agents. After reviewing the risks and benefits, the patient was deemed in satisfactory condition to undergo the procedure. The anesthesia plan was to use monitored anesthesia care (MAC). Immediately prior to administration of medications, the patient was re-assessed for adequacy to receive sedatives. The heart rate, respiratory rate, oxygen saturations, blood pressure, adequacy of pulmonary ventilation, and response to care were monitored throughout the procedure. The physical status of the patient was re-assessed after the procedure. After I obtained informed consent, the scope was passed under direct vision. Throughout the procedure, the patient's blood pressure, pulse, and oxygen saturations were monitored continuously. The colonoscope was introduced through the anus and advanced to the terminal ileum. The colonoscopy was performed without difficulty. The patient tolerated the procedure well. The quality of the bowel preparation was adequate. Scope In: 3:13:36 PM Scope Out: 3:35:24 PM Total Procedure Duration Time 0 hours 21 minutes 48 seconds Findings: The perianal and digital rectal examinations were normal. Multiple small and large-mouthed diverticula were found in the recto-sigmoid colon, sigmoid colon, descending colon, splenic flexure and transverse colon. An area of mildly congested mucosa was found in the sigmoid colon, in the descending colon and in the ascending colon. Biopsies were taken with a cold forceps for histology. Verification of patient identification for the specimen was done. Estimated blood loss was minimal. A patchy area of the terminal ileum was congested. Biopsies were taken with a cold forceps for histology. Verification of patient identification for the specimen was done. Estimated blood loss was minimal. Impression: - Diverticulosis in the recto-sigmoid colon, in the sigmoid colon, in the descending colon, at the splenic flexure and in the transverse colon. - Congested mucosa in the sigmoid colon, in the descending colon and in the ascending colon. Biopsied. - Congested mucosa in the terminal ileum. Biopsied. Recommendation: - Discharge patient to home. - Resume previous diet. - Continue present medications. - Await pathology results. - Repeat colonoscopy in 10 years for screening purposes. Procedure Code(s): --- Professional --- 01152, Colonoscopy, flexible; with biopsy, single or multiple CPT copyright 2017 [employer]. All rights reserved. The codes documented in this report are preliminary and upon adult protective caseworker review may be revised to meet current compliance requirements. Christoph Siu DO 08/23/2022 3:43:35 PM This report has been signed electronically. Number of Addenda: 0 Note Initiated On: 08/23/2022 3:11 PM
--- NOTE | 2022-08-23 15:43 | OP.CCLET_ITS ---
08/23/2022 Imelda Lund Re : Colonoscopy procedure for Alexandria Lund This procedure was performed on Tuesday, August 23, 2022. My impressions and recommendations are as follows: Impressions : - Diverticulosis in the recto-sigmoid colon, in the sigmoid colon, in the descending colon, at the splenic flexure and in the transverse colon. - Congested mucosa in the sigmoid colon, in the descending colon and in the ascending colon. Biopsied. - Congested mucosa in the terminal ileum. Biopsied. Recommendations : - Discharge patient to home. - Resume previous diet. - Continue present medications. - Await pathology results. - Repeat colonoscopy in 10 years for screening purposes. My findings are described in the full procedure note, which is enclosed. If I can be of further assistance, please feel free to contact me at . Sincerely, Christoph Siu, 08/23/2022 3:43:35 PM This report has been signed electronically.
[2022-08-23 15:45] VITALS: BP 128/85; BP 134/72; PULSE 79; RESP 16; O2SAT 95
[2022-08-23 15:50] VITALS: BP 118/84; BP 134/72; PULSE 72; RESP 16; TEMP 36.5; O2SAT 96
[2022-08-23 15:56] VITALS: BP 130/78; BP 134/72; PULSE 69; RESP 16; TEMP 36.5; O2SAT 97
[2022-08-23 16:20] VITALS: BP 134/72
== END 2022-08-23 16:37 | disposition home or self-care (01) ==
LOC: EN 13:52 → AC 13:54
PROVIDERS: PCP Family Medicine; Referring Provider Family Medicine; Visit Provider Internal Medicine Gastroenterology
PROC: 0DJD8ZZ Inspection of Lower Intestinal Tract, Via Natural or Artificial Opening Endoscopic (ICD-10-PCS; CPT 45378; principal; 2022-08-23 15:10)
DX: K63.89 Other specified diseases of intestine (principal); K31.89 Other diseases of stomach and duodenum; K22.70 Barrett's esophagus without dysplasia; K29.70 Gastritis, unspecified, without bleeding; K57.30 Diverticulosis of large intestine without perforation or abscess without bleeding; F32.A Depression, unspecified; F41.9 Anxiety disorder, unspecified; Z79.899 Other long term (current) drug therapy
CPT/HCPCS: 43239; 45380; 88305; 88313; 88341; 88342; J7120; J2405

== ENCOUNTER → 2022-09-13 | Outpatient (CLI) | payer OTHER, SELFPAY ==
[2022-09-13 10:45] LABS: Erythrocyte Sedimentation Rate 13 mm/hr (0-30)
[2022-09-13 10:47] LABS: Absolute Lymphocyte Count 2.15 X10^3/uL (0.83-4.51); Absolute Neutrophil Count 5.3 X10^3/uL (2.0-7.7); Basophil# 0.06 X10^3/uL; Basophil% 0.7 % (0-1); Eosinophil# 0.31 X10^3/uL; Eosinophils% 3.7 % (0-5); Hematocrit 40.8 % (37-47); Lymphocyte # 2.15 X10^3/ul (0.83-4.51); Lymphocyte % 25.9 % (19-41); Mean Corp Hgb Conc 31.9 g/dL (32-36); Mean Corpuscular Hgb 26.5 pg (27.0-32.0); Mean Corpuscular Volume 83.1 fL (81-99); Mean Platelet Vol. 10.1 fl (6.2-12.0); NRBC Flagged by Analyzer 0 % (0-5); Neutrophil # 5.25 X10^3/uL (2.7-7.7); Neutrophil % 63.2 % (47-70); Platelet Count 364 K/mm3 (150-450); RBC Distribution Width SD 47.9 fl (35.1-43.9); Red Blood Count 4.91 M/mm3 (4.2-5.4); White Blood Count 8.3 K/mm3 (4.4-11.0)
[2022-09-13 11:28] LABS: ALB/GLOB Ratio 0.8 RATIO (0.9-2.4); AST(SGOT) 24 U/L (15-37); Alanine Aminotransfer ALT/SGPT 35 U/L (13-56); Albumin, Serum 3.4 g/dL (3.2-5.0); Alkaline Phosphatase 101 U/L (45-117); Anion Gap 6 (5-15); BUN 11 mg/dL (7-18); BUN/Creat Ratio 16.1 RATIO (10-20); Calcium,Total 9.1 mg/dL (8.5-10.1); Chloride 104 mmol/L (98-107); Creatinine, Serum 0.68 mg/dL (0.55-1.02); EST Glomerular Filtration Rate 97 mL/min (>60); Est Glom Filt Rate - Afr Amer 117 mL/min (>60); Glucose 89 mg/dL (74-106); LDH 169 U/L (84-246); Potassium 4.2 mmol/L (3.5-5.1); Protein, Total 7.4 g/dL (6.4-8.2); Sodium Level 138 mmol/L (136-145)
[2022-09-16 00:06] LABS: Albumin 3.6 g/dL (2.9-4.4); Alpha-1-Globulins 0.2 g/dL (0.0-0.4); Alpha-2-Globulins 0.8 g/dL (0.4-1.0); Gamma Globulin 1.1 g/dL (0.4-1.8); Immunoglobulin A 158 mg/dL (87-352); Immunoglobulin G 1131 mg/dL (586-1602); Immunoglobulin M 85 mg/dL (26-217); PROEL- TOTAL PROTEIN 6.7 g/dL (6.0-8.5)
[2022-09-16 08:36] LABS: Immunoglobulin E 5 IU/mL (6-495)
== END | disposition home or self-care (01) ==
LOC: LAB 09:44
PROVIDERS: PCP Family Medicine; Referring Provider Nurse Practitioner Adult Health; Visit Provider Nurse Practitioner Adult Health
DX: K59.00 Constipation, unspecified (principal)
CPT/HCPCS: 36415; 80053; 82784; 82785; 83615; 84165; 85025; 85652; 86140; 86334

== ENCOUNTER → 2022-09-15 | Outpatient (CLI) | payer OTHER, SELFPAY | END | disposition home or self-care (01) | LOC: LABSPEC 09:34 | PROVIDERS: PCP Family Medicine; Referring Provider Nurse Practitioner Adult Health; Visit Provider Nurse Practitioner Adult Health | DX: K58.9 Irritable bowel syndrome, unspecified (principal); K59.00 Constipation, unspecified | CPT/HCPCS: 83630 ==